=== PATIENT | male | born 1955 | race African-American/Black ===

== ENCOUNTER 2018-11-24 13:55 | Emergency (ER) | payer OTHER, MEDICAID ==
[~2018-11-24] VITALS: Ht 177.8 cm; Wt 80.3 kg
[~2018-11-24 13:55] MED LIST: LAC PO; LEVOFLOXACIN250 MG PO; NEURONTIN300 MG; NORCO1 TA2 PO; NOVOLOG MI10 U/0.11
[2018-11-24 13:59] VITALS: Ht 177.8 cm; Wt 80.3 kg
[2018-11-24 15:44] LABS: BASOPHIL % 0.3 % (0-2); PLATELET COUNT 184 x10^3mcL (130-400)
[2018-11-24 15:45] LABS: RED CELL DISTRIBUTION WIDTH 17.1 % (11.5-14.5)
[2018-11-24 15:57] LABS: ALBUMIN 3.4 g/dL (3.4-5.0); BILIRUBIN TOTAL 0.3 mg/dL (0.20-1.00); CALCIUM 9.2 mg/dL (8.5-10.1); CARBON DIOXIDE 31.1 mmol/L (21-32); POTASSIUM SERUM 4.7 mmol/L (3.5-5.1)
[2018-11-24 16:12] LABS: TOTAL PROTEIN, SERUM 8.5 g/dL (6.4-8.2)
[2018-11-24] MEDS ORDERED: PERCOCET1 TA5 PO (18:19)
[2018-11-24] MEDS ORDERED: COLACE100 MG PO (18:19)
[2018-11-24] MEDS ORDERED: LANTUS SOLOS100 U/M1 SQ (18:20)
[2018-11-24] MEDS ORDERED: NOVOLOG MIX 70/33 ML SC (18:20)
[2018-11-24] MEDS ORDERED: AMBIEN CR12.5 MG PO (18:22)
[2018-11-24] MEDS ORDERED: CALCIUM ACETAT667 M3 PO (18:22)
[2018-11-24 18:58] VITALS: BP 159/53
== END 2018-11-24 19:24 | disposition left against medical advice (07) ==
LOC: ED 13:55
PROVIDERS: Emergency Medicine
DX: N50.812 Left testicular pain (principal); E11.22 Type 2 diabetes mellitus with diabetic chronic kidney disease; I12.0 Hypertensive chronic kidney disease with stage 5 chronic kidney disease or end stage renal disease; N18.6 End stage renal disease; E11.40 Type 2 diabetes mellitus with diabetic neuropathy, unspecified; Z99.2 Dependence on renal dialysis; Z85.528 Personal history of other malignant neoplasm of kidney; Z98.61 Coronary angioplasty status; Z98.890 Other specified postprocedural states
CPT/HCPCS: 36415; Q0092